=== PATIENT | female | born 1965 | race African-American/Black ===

== ENCOUNTER 2020-08-26 15:39 | Emergency (ER) | payer MEDICAID ==
[~2020-08-26] VITALS: Ht 172.7 cm; Wt 89.0 kg
[2020-08-26] MEDS ORDERED: MORPHINE SULFATE 4 MG/ML CPJ (NOT FOR IM USE) IV ONE (16:15)
[2020-08-26 16:39] LABS: BASOPHILS % 0.7 % (0.0-2.0); EOSINOPHILS % 2.1 % (0.0-5.0); HEMOGLOBIN. 12.9 g/dL (12.0-16.0); LYMPHOCYTES % 39.4 % (20.0-50.0); MEAN CORPUSCULAR HEMOGLOBIN 32.5 pg (28.0-32.0); MEAN CORPUSCULAR VOLUME 93.4 fL (81.0-99.0); MEAN PLATELET VOLUME 7.9 fl (7.4-10.4); MONOCYTES % 7.9 % (2.0-8.0); NEUTROPHILS % 49.9 % (40.0-76.0); PLATELET 236 x1000/uL (130-400); RED BLOOD CELL COUNT 3.97 mill/uL (4.2-5.4); RED CELL DISTRIBUTION WIDTH 12.8 % (11.6-14.6)
[2020-08-26 16:43] LABS: CHLORIDE 107 mEq/L (98-107)
[2020-08-26 16:54] LABS: B-HCG QUANTITATIVE < 1.0 mIU/mL (<3)
[2020-08-26] MEDS ORDERED: T3 PO (18:03)
[2020-08-26 18:07] VITALS: BP 124/80
== END 2020-08-26 18:29 | disposition home or self-care (01) ==
LOC: ER 15:39
DX: D25.9 Leiomyoma of uterus, unspecified (principal); F12.90 Cannabis use, unspecified, uncomplicated; Z87.891 Personal history of nicotine dependence
CPT/HCPCS: 36415; 76830; 76856; 80053; 81025; 84702; 85025; 86850; 86900; 86901; 96374; 99284; J2270

== ENCOUNTER 2022-04-23 20:12 | Emergency (ER) | payer MEDICAID ==
[~2022-04-23] VITALS: Ht 177.8 cm; Wt 95.0 kg
[~2022-04-23 20:12] MED LIST: T3 PO
[2022-04-23] MEDS ORDERED: IBUPROFEN 600MG TABLET PO STA (21:07)
[2022-04-23 22:26] LABS: BASOPHILS % 0.5 % (0.0-2.0); EOSINOPHILS % 2.2 % (0.0-5.0); HEMATOCRIT. 38.5 % (36.0-48.0); HEMOGLOBIN. 13.1 g/dL (12.0-16.0); LYMPHOCYTES % 34.3 % (20.0-50.0); MEAN CORPUSCULAR HEMOGLOBIN 32.1 pg (28.0-32.0); MEAN CORPUSCULAR VOLUME 94.7 fL (81.0-99.0); MEAN PLATELET VOLUME 7.8 fl (7.4-10.4); MONOCYTES % 6.6 % (2.0-8.0); NEUTROPHILS % 56.4 % (40.0-76.0); PLATELET 244 x1000/uL (130-400); RED BLOOD CELL COUNT 4.07 mill/uL (4.2-5.4); RED CELL DISTRIBUTION WIDTH 13.1 % (11.6-14.6)
[2022-04-23] MEDS ORDERED: ACETAMINOPHEN 325MG TABLET PO ONE (22:30)
[2022-04-23 22:33] LABS: CHLORIDE 106 mEq/L (98-107)
[2022-04-24] MEDS ORDERED: ACET-2708 MT (01:14)
[2022-04-24 01:25] VITALS: BP 124/78
== END 2022-04-24 01:20 | disposition home or self-care (01) ==
LOC: ER 20:12
DX: R07.89 Other chest pain (principal); M54.9 Dorsalgia, unspecified; F17.200 Nicotine dependence, unspecified, uncomplicated; Z88.6 Allergy status to analgesic agent
CPT/HCPCS: 36415; 71045; 80053; 84484; 85025; 93005; 99285

== ENCOUNTER 2022-05-07 14:40 | Emergency (ER) | payer MEDICAID ==
[~2022-05-07] VITALS: Ht 180.3 cm; Wt 100.0 kg
[~2022-05-07 14:40] MED LIST changes: +ACET-2708 MT
[2022-05-07 14:50] VITALS: BP 176/98
== END 2022-05-07 22:16 | disposition left against medical advice (07) ==
LOC: ER 14:40
DX: Z53.21 Procedure and treatment not carried out due to patient leaving prior to being seen by health care provider (principal)

== ENCOUNTER 2022-06-09 05:04 | Emergency (ER) | payer MEDICAID ==
[~2022-06-09] VITALS: Ht 180.3 cm; Wt 98.0 kg
[2022-06-09 05:17] VITALS: BP 122/84
[2022-06-09 06:40] LABS: BASOPHILS % 0.4 % (0.0-2.0); EOSINOPHILS % 0.1 % (0.0-5.0); HEMATOCRIT. 38.5 % (36.0-48.0); HEMOGLOBIN. 12.8 g/dL (12.0-16.0); MEAN CORPUSCULAR VOLUME 87.2 fL (81.0-99.0); MEAN PLATELET VOLUME 7.7 fl (7.4-10.4); MONOCYTES % 6.7 % (2.0-8.0); NEUTROPHILS % 68.8 % (40.0-76.0); PLATELET 327 x1000/uL (130-400); RED BLOOD CELL COUNT 4.42 mill/uL (4.2-5.4); RED CELL DISTRIBUTION WIDTH 12.7 % (11.6-14.6)
[2022-06-09 06:41] LABS: CHLORIDE 106 mEq/L (98-107)
[2022-06-09 06:52] LABS: PROTHROMBIN TIME 10.3 sec (9.6-11.0)
== END 2022-06-09 08:24 | disposition left against medical advice (07) ==
LOC: ER 05:04
DX: Z53.21 Procedure and treatment not carried out due to patient leaving prior to being seen by health care provider (principal); I49.9 Cardiac arrhythmia, unspecified
CPT/HCPCS: 36415; 80053; 84484; 85025; 93005; 99281

== ENCOUNTER 2024-11-18 00:55 | Emergency (ER) | payer MEDICAID ==
[~2024-11-18] VITALS: Ht 182.9 cm; Wt 87.0 kg
[~2024-11-18 00:55] MED LIST changes: -ACET-2708 MT; +ATOR20TA PO; +OXYC1TAB5 PO; -T3 PO
[2024-11-18 01:01] VITALS: O2SAT 98
[2024-11-18 02:32] LABS: BASOPHILS % 0.6 % (0.0-2.0); EOSINOPHILS % 1.5 % (0.0-5.0); HEMATOCRIT. 39.0 % (36.0-48.0); HEMOGLOBIN. 12.9 g/dL (12.0-16.0); LYMPHOCYTES % 25.8 % (20.0-50.0); MEAN PLATELET VOLUME 7.9 fl (7.4-10.4); MONOCYTES % 8.5 % (2.0-8.0); NEUTROPHILS % 63.6 % (40.0-76.0); PLATELET 219 x1000/uL (130-400); RED BLOOD CELL COUNT 4.20 mill/uL (4.2-5.4); RED CELL DISTRIBUTION WIDTH 14.3 % (11.6-14.6)
[2024-11-18] MEDS: LORAZEPAM 2MG/ML UD SYRINGE IV SCH (02:32)
[2024-11-18] MEDS: LEVETIRACETAM 1000MG PREMIX 100 ML IV ONE (02:33)
[2024-11-18 02:45] LABS: UREA NITROGEN BLOOD 30.0 mg/dL (9-23)
[2024-11-18 02:46] LABS: CREATININE 1.6 mg/dL (0.6-1.0)
[2024-11-18 04:45] VITALS: BP 107/76; PULSE 66; RESP 15; TEMP 36.7; O2SAT 100
== END 2024-11-18 04:30 | disposition home or self-care (01) ==
LOC: ER 00:55
DX: R56.9 Unspecified convulsions (principal); F17.200 Nicotine dependence, unspecified, uncomplicated; J44.9 Chronic obstructive pulmonary disease, unspecified; F12.90 Cannabis use, unspecified, uncomplicated; Z79.899 Other long term (current) drug therapy; Z88.6 Allergy status to analgesic agent
CPT/HCPCS: 99285; 96365; 70450; 96375; 80048; 85025; 36415; 93005; J1953; J2060